=== PATIENT | female | born 1980 | race Caucasian/White ===

== ENCOUNTER 2017-08-06 21:42 | Emergency (ER) | payer MEDICAID, SELFPAY ==
[2017-08-06 21:52] VITALS: BP 116/77; PULSE 77; RESP 16; TEMP 36.8; O2SAT 100; BMI 21.1
--- NOTE | 2017-08-06 22:12 | HMH.EDGENADL ---
ED Disposition Clinical Impression: UTI (urinary tract infection) Qualifiers: Urinary tract infection type: acute cystitis Hematuria presence: with hematuria Qualified Code(s): N30.01 - Acute cystitis with hematuria Disposition: Home, Self-Care Condition on Discharge: Good Instructions: DI for Urinary Tract Infection (UTI) Additional Instructions: fluids and see pcp for follow up anc c/s Prescriptions: cephALEXin [Keflex 500mg Cap] 500 mg PO TID #30 cap Referrals: Suhas Bagley MD [Primary Care Provider] - - Critical Care Critical Care Time: No Attestation: On 08/06/17, the high probability of a clinically significant, sudden or life threatening deterioration of the following system(s) required my full and direct attention, intervention and personal management. The time I documented below is in addition to time spent performing reported procedures but includes the following listed in this critical care notation. Medical Decision Making - Medical Records Medical records reviewed: Yes: I reviewed the patient's medical records. Vital Signs: 08/06/17 21:52 Temperature 98.3 F Temperature Source Oral Pulse Rate [Brachial] 77 Respiratory Rate 16 Blood Pressure [Right Arm] 116/77 Blood Pressure Mean [Right Arm] 90 Blood Pressure Source [Right Arm] Automatic Cuff Blood Pressure Position [Right Arm] Sitting 02 Sat by Pulse Oximetry 100 Oxygen Delivery Method Room Air - Lab Data Lab results reviewed: Yes: I reviewed the patient's lab results. Lab Results 08/06/17 21:50: Urine Color Yellow, Urine Appearance Cloudy, Urine pH 7.5, Ur Specific [place] 1.025, Urine Protein 2+, Urine Glucose (UA) Negative, Urine Ketones Negative, Urine Blood 2+, Urine Nitrate Positive, Urine Bilirubin Negative, Urine Urobilinogen 1.0, Ur Leukocyte Esterase Trace, Urine RBC 3-5, Urine WBC 50-100 Orders (Tests/Meds): ORDERS Category Date Time Status Urine Culture Stat Micro 08/06/17 21:50 Received - Tee Inquiry Pt receiving controlled substance: No General Adult HPI - General Chief complaint: PAIN Stated complaint: Possible UTI Time Seen by Provider: 08/06/17 22:12 Mode of Arrival: Ambulatory Source of Information: Patient, Significant Other, Medical Record Limitations: No Limitations Description of Symptoms (Recalled from ER Triage Doc. by RN): HEMATURIA AND PAIN WITH URINATION - History of Present Illness HPI narrative: 2 day hx of freq and dysuria with no vomiting and sl hematuria Onset (ago): day(s) Location: pelvis Radiation: non-radiation Severity: moderate Quality: burning Consistency: intermittent Associated symptoms: negative: fever/chills, nausea/vomiting Treatments prior to arrival: none - Related Data Previous Rx's Medication Instructions Recorded cephALEXin [Keflex 500mg Cap] 500 mg PO TID #30 cap 08/06/17 Allergies Allergy/AdvReac Type Severity Reaction Status Date / Time ciprofloxacin [From CIPRO] Allergy Unknown I-HIVES Verified 08/06/17 22:00 erythromycin base Allergy Unknown I-HIVES Verified 08/06/17 22:00 [ERYTHROMYCIN BASE] [facility] History I have reviewed the patient's past medical history: Yes - *Social History Alcohol Intake: never Substance Use Type: opiates - Psychiatric History Expresses thoughts of harming self/others: None Suicide Plan Description: No Plan ROS Obtained: Yes All systems reviewed & no additional complaints - Constitutional Constitutional: Denies fever(s) - Eyes Eyes: Denies change in vision - ENT Ears, Nose, Mouth, and Throat: Denies sore throat - Cardiovascular Cardiovascular: Denies chest pain at rest - Respiratory Respiratory: No chest congestion, No cough - Gastrointestinal Gastrointestingal: Reports: nausea. Denies: abdominal pain, vomiting - Genitourinary Male Genitourinary: Denies flank pain, Reports hematuria, Reports urinary frequency, Denies urinary incontinence Female Genitourinary: Denies abnorm
[2017-08-06 22:14] LABS: Microscopic, Urine URINE MICROSCOPIC (MICROSCOPIC)
--- NOTE | 2017-08-06 22:15 | ED_ITS ---
ED Disposition Clinical Impression: UTI (urinary tract infection) Qualifiers: Urinary tract infection type: acute cystitis Hematuria presence: with hematuria Qualified Code(s): N30.01 - Acute cystitis with hematuria Disposition: Home, Self-Care Condition on Discharge: Good Instructions: DI for Urinary Tract Infection (UTI) Additional Instructions: fluids and see pcp for follow up anc c/s Prescriptions: cephALEXin [Keflex 500mg Cap] 500 mg PO TID #30 cap Referrals: Suhas Bagley MD [Primary Care Provider] - - Critical Care Critical Care Time: No Attestation: On 08/06/17, the high probability of a clinically significant, sudden or life threatening deterioration of the following system(s) required my full and direct attention, intervention and personal management. The time I documented below is in addition to time spent performing reported procedures but includes the following listed in this critical care notation. Medical Decision Making - Medical Records Medical records reviewed: Yes: I reviewed the patient's medical records. Vital Signs: 08/06/17 21:52 Temperature 98.3 F Temperature Source Oral Pulse Rate [Brachial] 77 Respiratory Rate 16 Blood Pressure [Right Arm] 116/77 Blood Pressure Mean [Right Arm] 90 Blood Pressure Source [Right Arm] Automatic Cuff Blood Pressure Position [Right Arm] Sitting 02 Sat by Pulse Oximetry 100 Oxygen Delivery Method Room Air - Lab Data Lab results reviewed: Yes: I reviewed the patient's lab results. Lab Results 08/06/17 21:50: Urine Color Yellow, Urine Appearance Cloudy, Urine pH 7.5, Ur Specific [place] 1.025, Urine Protein 2+, Urine Glucose (UA) Negative, Urine Ketones Negative, Urine Blood 2+, Urine Nitrate Positive, Urine Bilirubin Negative, Urine Urobilinogen 1.0, Ur Leukocyte Esterase Trace, Urine RBC 3-5, Urine WBC 50-100 Orders (Tests/Meds): ORDERS Category Date Time Status Urine Culture Stat Micro 08/06/17 21:50 Received - Tee Inquiry Pt receiving controlled substance: No General Adult HPI - General Chief complaint: PAIN Stated complaint: Possible UTI Time Seen by Provider: 08/06/17 22:12 Mode of Arrival: Ambulatory Source of Information: Patient, Significant Other, Medical Record Limitations: No Limitations Description of Symptoms (Recalled from ER Triage Doc. by RN): HEMATURIA AND PAIN WITH URINATION - History of Present Illness HPI narrative: 2 day hx of freq and dysuria with no vomiting and sl hematuria Onset (ago): day(s) Location: pelvis Radiation: non-radiation Severity: moderate Quality: burning Consistency: intermittent Associated symptoms: negative: fever/chills, nausea/vomiting Treatments prior to arrival: none - Related Data Previous Rx's Medication Instructions Recorded cephALEXin [Keflex 500mg Cap] 500 mg PO TID #30 cap 08/06/17 Allergies Allergy/AdvReac Type Severity Reaction Status Date / Time ciprofloxacin [From CIPRO] Allergy Unknown I-HIVES Verified 08/06/17 22:00 erythromycin base Allergy Unknown I-HIVES Verified 08/06/17 22:00 [ERYTHROMYCIN BASE] [facility] History I have reviewed the patient's past medical history: Yes - *Social History Alcohol Intake: never Substance Use Type: opiates - Psychiatric History Expresses thoughts of
[2017-08-06 22:56] LABS: Appearance,Urine CLOUDY (Clear); Bilirubin,Urine Negative (Negative); Blood, Urine 2+ (Negative); Color,Urine YELLOW (Yellow); Glucose,Urine (UA) Negative (Negative); Ketones,Urine Negative (Negative); Leukocyte Esterase,Urine TRACE (Negative); Nitrate,Urine POSITIVE (Negative); PH,Urine 7.5 (5.0-8.5); Protein,Urine 2+ (Negative); Specific Gravity, Urine 1.025 (1.005-1.030)
[2017-08-06 23:02] LABS: WBC,Urine 50-100 #/hpf (0-3)
== END 2017-08-06 23:37 | disposition home or self-care (01) ==
PROVIDERS: Emergency Provider Emergency Medicine; Family Provider Nurse Practitioner Family; PCP Emergency Medicine
DX: N30.01 Acute cystitis with hematuria (principal)
CPT/HCPCS: 81001; 87086; 87088; 87186; 99282

== ENCOUNTER → 2019-02-23 10:25 | Outpatient (CLI) | payer MEDICAID, SELFPAY ==
[2019-02-23 11:21] LABS: Basophils % 0.6 % (0.1-2.0); Eosinophils # 0.1 K/mm3 (0.0-0.4); Eosinophils % 2.2 % (0.1-12.0); Hematocrit 33.7 % (37.0-47.0); Hemoglobin 10.1 g/dL (12.2-16.2); Lymphocytes # 1.6 K/mm3 (0.7-4.5); Lymphocytes % 34.2 % (10-50); Mean Corpuscular Volume 76.9 fl (81-99); Mean Platelet Volume 7.6 fl (7.4-10.4); Monocytes # 0.2 K/mm3 (0.1-1.0); Monocytes % 4.1 % (1.7-9.3); Neutrophils # 2.8 K/mm3 (1.8-7.8); Neutrophils % 58.9 % (37.0-80.0); Platelet Count 291 K/mm3 (142-424); Red Blood Count 4.38 M/mm3 (4.20-5.40); Red Cell Distribution Width 15.7 % (11.5-17.5); White Blood Count 4.7 K/mm3 (4.8-10.8)
[2019-02-23 16:02] LABS: Alanine Aminotransferase 28 U/L (12-78); Albumin Level 3.6 gm/dL (3.4-5.0); Albumin/Globulin Ratio 0.9 (1.1-1.8); Alkaline Phosphatase 81 U/L (46-116); Anion Gap 9.1 mEq/L (5-15); Aspartate Amino Transferase 17 U/L (15-37); Bilirubin,Total 0.2 mg/dL (0.2-1.0); Blood Urea Nitrogen 10 mg/dL (7-18); Calcium 8.8 mg/dL (8.5-10.1); Carbon Dioxide 31 mmol/L (21.0-32.0); Chloride 104 mmol/L (98-107); Chol/HDL Ratio 2.7 (1-3.5); Cholesterol 141 mg/dL (140-200); Estimated Glomerular Filt Rate 112 ml/min (>60); Free T4 (Free Thyroxine) 1.28 ng/dl (0.76-1.46); GFR (African American) 135 ML/MIN (>60); Globulin 4.1 gm/dl (1.3-3.2); Glucose 89 mg/dL (74-106); HDL Cholesterol 53 mg/dL (29-89); LDL Cholesterol 73 mg/dL (0-130); Potassium 4.1 mmoL/L (3.5-5.1); Sodium 140 mmol/L (136-145); Thyroid Stimulating Hormone 2.08 uIU/ml (0.358-3.740); Total Protein,Serum 7.7 gm/dL (6.4-8.2); Triglycerides 74 mg/dL (30-200); VLDL Cholesterol 15 mg/dL (0-40)
[2019-02-24 09:18] LABS: Hep B Core Ab, Total Negative (Negative); Hepatitis B Surface Antigen Negative (Negative)
[2019-02-24 18:48] LABS: HIV Screen 4th Generation wRfx Non Reactive (Non Reactive); Hep A Ab, Total Positive (Negative); Hepatitis B Surf Ab Quant 96.9 mIU/mL (Immunity>9.9); Hepatitis C Antibody >11.0 s/co ratio (0.0-0.9); Vitamin D 25 Hydroxy 12.6 ng/mL (30.0-100.0)
== END ==
PROVIDERS: Visit Provider Emergency Medicine
DX: R76.8 Other specified abnormal immunological findings in serum (principal); F32.9 Major depressive disorder, single episode, unspecified; Z20.5 Contact with and (suspected) exposure to viral hepatitis; Z13.21 Encounter for screening for nutritional disorder
CPT/HCPCS: 36415; 80053; 80061; 82652; 84439; 84443; 85025; 86703; 86704; 86706; 86708; 87340; 87380; 87522; G0432

== ENCOUNTER 2023-10-01 20:54 | Emergency (ER) | payer MEDICAID, SELFPAY ==
[2023-10-01 21:00] VITALS: BP 110/62; PULSE 68; RESP 17; TEMP 36.8; O2SAT 99; BMI 21.3
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
[2023-10-01 21:49] VITALS: BP 100/60; BP 132/78; PULSE 70; PULSE 82; RESP 17; RESP 18; TEMP 36.7; O2SAT 99
== END 2023-10-01 21:49 ==
PROVIDERS: Emergency Provider Emergency Medicine
DX: F10.929 Alcohol use, unspecified with intoxication, unspecified (principal)
CPT/HCPCS: 99282

== ENCOUNTER 2024-04-07 23:32 | Observation (INO) | payer MEDICAID, SELFPAY ==
[2024-04-07 23:33] VITALS: BP 99/69; PULSE 112; RESP 20; TEMP 37.1; O2SAT 99; BMI 23.0
--- NOTE | 2024-04-07 23:49 | ECG_ITS ---
APPROVED REPORT Exam: Resting ECG HR:91 bpm ECG Measurements Heart Rate 91 AXES MA 158 P 72 QRSd 88 QRS 37 QT 372 T 20 QTc 421 Conclusion SINUS RHYTHM NORMAL ECG UNCONFIRMED REPORT Electronically signed by : ALEX BEGUM, 04/09/2024 04:29:10
[2024-04-08] VITALS (22 sets, daily range): BP systolic 91–106; BP diastolic 49–68; PULSE 60–80; RESP 14–20; TEMP 36.6–37.1; O2SAT 96–99; BMI 23.5
[2024-04-08 00:25] LABS: Basophils % 0.4 % (0.1-2.0); Eosinophils % 0.2 % (0.1-12.0); Hematocrit 30.3 % (37.0-47.0); Hemoglobin 9.3 g/dL (12.2-16.2); Lymphocytes # 0.5 K/mm3 (0.7-4.5); Lymphocytes % 11.5 % (10-50); Mean Corpuscular HGB Conc 30.6 g/dL (31.8-35.4); Mean Corpuscular Hemoglobin 22.8 pg (27.0-31.2); Mean Corpuscular Volume 74.3 fl (81-99); Mean Platelet Volume 8.5 fl (7.4-10.4); Monocytes # 0.3 K/mm3 (0.1-1.0); Monocytes % 7.3 % (1.7-9.3); Neutrophils # 3.2 K/mm3 (1.8-7.8); Neutrophils % 80.6 % (37.0-80.0); Platelet Count 207 K/mm3 (142-424); Red Blood Count 4.08 M/mm3 (4.20-5.40); Red Cell Distribution Width 16.1 % (11.5-17.5)
--- NOTE | 2024-04-08 00:25 | CT_ITS ---
PROCEDURE INFORMATION: Exam: CTA Chest With Contrast Exam date and time: 04/08/2024 1:20 AM Age: 43 years old Clinical indication: Fever; Additional info: Ivdu HX endocard, L side cp, fevers TECHNIQUE: Imaging protocol: Computed tomographic angiography of the chest with contrast. Exam focused on the arteries. 3D rendering (Not supervised by radiologist): MIP and/or 3D reconstructed images were created by the technologist. Radiation optimization: All CT scans at this facility use at least one of these dose optimization techniques: automated exposure control; mA and/or kV adjustment per patient size (includes targeted exams where dose is matched to clinical indication); or iterative reconstruction. Contrast material: ISOVUE; Contrast volume: 70 ml; Contrast route: INTRAVENOUS (IV); COMPARISON: 1. ABDPELWO CT abdomen pelvis wo con 02/09/2018 5:25 AM 2. CR CXR2V XR chest 2V 02/09/2018 5:34 AM FINDINGS: Pulmonary arteries: No pulmonary embolism. Aorta: No aortic aneurysm. Four vessel aortic arch. Thyroid: The thyroid gland is normal. Lungs: No focal consolidation. Linear radiopacities within the lung bases likely represent atelectasis versus scarring. Multiple subpleural pulmonary nodules measuring up to 8 mm. Pleural spaces: No pneumothorax. No pleural effusion. Heart: No cardiomegaly. No pericardial effusion. Lymph nodes: No suspicious adenopathy by size criteria. Spleen: Spleen is mildly enlarged; unchanged. Bones/joints: No acute fracture. Remote fracture deformity of the left clavicle. Soft tissues: Unremarkable. IMPRESSION: 1. No pulmonary embolism. 2. Multiple pulmonary nodules, largest measuring 8 mm. As per Fleischner Society guidelines for follow-up and management of multiple pulmonary nodules between 6 and 8 mm:For patients at low risk (minimal or absent history of smoking and of other known risk factors), recommend follow-up chest CT at 3-6 months, then consider followup at 18 - 24 months.For patients at high risk (history of smoking or of other known risk factors), recommend initial follow-up chest CT at 3-6 months, then at 18-24 months. 3. Other findings as above.
--- NOTE | 2024-04-08 00:27 | ED_ITS ---
Discharge Plan Disposition Patient Disposition: Admitted Condition: Serious Clinical Impressions Clinical Impression: Sepsis, Abscess, Active intravenous drug use Discharge ED Provider: Cali Wing Adult HPI General Chief complaint: Fever Stated complaint: fever x2 days Time Seen by Provider: 04/07/24 23:47 Mode of Arrival: Ambulatory Source of Information: Patient Limitations: No Limitations Description of Symptoms (Recalled from ER Triage Doc. by RN): Pt to ED with c/o fever X2 days, feeling like she was talking out of her head, abcesses to right arm, right hand, and left leg. She also reports pain with inspiration. Pt reports hx of abcesses needing I&D, endocarditis, sepsis, and kidney infection. 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 Pt last reports using Fentnyl approx 2 hours ago. She reports the abcesses she has are from missing her veins when trying to inject fentnyl. 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 She also has left-sided chest pain worse with deep inspiration. Patient also reports having headaches recently. No numbness, tingling, weakness. Patient has history of abscesses needing incision/drainage, sepsis, kidney infection. Patient reports abscesses are from missing her veins while trying to inject. She states she has not had any antibiotics recently. She believes her last hospitalization for serious bacterial infection was 2016. Patient denies cough, congestion, sore throat, nausea, vomiting, abdominal pain, dysuria, hematuria. Related Data Previous Rx's ?Medication ?Instructions ?Recorded bupropion HCl 75 mg tablet 75 mg PO BID #60 tabs 02/23/19 clonazepam 0.5 mg tablet 0.5 mg PO BID #60 tabs 02/23/19 cholecalciferol (vitamin D3) 25 1,000 unit PO DAILY #90 caps 03/02/19 mcg (1,000 unit) capsule ergocalciferol (vitamin D2) 1,250 50,000 unit PO QWEEK 90 days #12 03/02/19 mcg (50,000 unit) capsule caps Allergies Allergy/AdvReac Type Severity Reaction Status Date / Time ciprofloxacin [From CIPRO] Allergy Unknown I-HIVES Verified 02/23/19 09:43 erythromycin base Allergy Unknown I-HIVES Verified 02/23/19 09:43 [ERYTHROMYCIN BASE] [facility] Disclaimer: The information contained in this section may have been updated after the patient was seen, as this information can be updated by other users. Medical History (Updated 04/08/24 @ 04:40 by Bladimir Kramer RN) Sepsis Abscess Endocarditis Social History Smoking Status: Never smoker alcohol intake: former substance use type: heroin and IV drugs current occupational status: unemployed Travel in the last 8 weeks: None household members: family housing: apartment ROS Obtained: Yes All systems reviewed & no additional complaints except as documented Positive ROS per HPI Physical Exam General General appearance: alert and in no apparent distress Comment: Chronically ill-appearing Head Head exam: atraumatic and normocephalic Eye Eye exam: Present PERRL and EOMI (Pupils are small but not pinpoint, reactive, equal) ENT ENT exam: Present normal oropharynx and mucous membranes moist Neck Neck exam: Present normal inspection and full ROM; Absent tenderness Chest Chest inspection: Present symmetric chest wall rise; Absent tenderness Respiratory Respiratory exam: Present normal lung sounds bilaterally; Absent respiratory distress, wheezes or stridor Cardiovascular Cardiovascular exam: Present normal rhythm, tachycardia and other (2+ pulses in all 4 extremity) Abdominal Exam Abdominal exam: Present soft; Absent distention, tenderness, guarding or rebound Extremities Exam Extremities exam: Present full ROM and other (Patient has innumerable injection sites on her upper and lower extremities with scabs, few of them have mild surrounding erythema, 1 on her distal left lower extremity has obvious fluctuance with associated induration, posterior right hand also has induration); Absent edema (No peripheral edema) or joint swelling Neurological Exam Neurological exam: Present alert, oriented X3 and normal gait; Absent CN II-XII intact or motor sensory deficit Psychiatric Psychiatric exam: Present normal affect and normal mood Skin Skin exam: Present warm, dry and other (See extremities comments) Medical Decision Making Medical Records Medical records reviewed: Yes I reviewed the patient's medical records. MR Comment: patient had a primary care visit with Dr. Bagley in February 2019 for depression, started on bupropion and clonazepam at that time. Patient also has previous ER evaluations for UTI, abdominal pain, alcohol intoxication. Tee Inquiry Pt receiving controlled substance: No Vital Signs: 04/07/24 23:33 04/08/24 00:29 04/08/24 00:30 Temperature 98.7 F Temperature Source Oral Pulse Rate Pulse Rate [Right Radial] 112 H Respiratory Rate 20 Blood Pressure 99/49 L 95/53 L Blood Pressure [Right Arm] 99/69 L Blood Pressure Mean 65 70 Blood Pressure Mean [Right Arm] 79 Blood Pressure Source Blood Pressure Source [Right Arm] Automatic Cuff Blood Pressure Position Blood Pressure Position [Right Arm] Sitting 02 Sat by Pulse Oximetry 99 Oxygen Delivery Method Room Air 04/08/24 01:00 04/08/24 01:42 04/08/24 01:46 Temperature Temperature Source Pulse Rate 73 65 66 Pulse Rate [Right Radial] Respiratory Rate 15 14 14 Blood Pressure 104/58 L 93/56 L 100/59 L Blood Pressure [Right Arm] Blood Pressure Mean Blood Pressure Mean [Right Arm] Blood Pressure Source Blood Pressure Source [Right Arm] Blood Pressure Position Blood Pressure Position [Right Arm] 02 Sat by Pulse Oximetry 99 99 98 Oxygen Delivery Method 04/08/24 02:00 04/08/24 02:30 04/08/24 03:00 Temperature Temperature Source Pulse Rate 65 72 66 Pulse Rate [Right Radial] Respiratory Rate 14 15 14 Blood Pressure 96/53 L 95/56 L Blood Pressure [Right Arm] Blood Pressure Mean Blood Pressure Mean [Right Arm] Blood Pressure Source Blood Pressure Source [Right Arm] Blood Pressure Position Blood Pressure Position [Right Arm] 02 Sat by Pulse Oximetry 99 99 97 Oxygen Delivery Method 04/08/24 03:00 04/08/24 03:03 04/08/24 03:03 Temperature Temperature Source Pulse Rate 73 Pulse Rate [Right Radial] Respiratory Rate 15 Blood Pressure 91/56 L 96/57 L Blood Pressure [Right Arm] Blood Pressure Mean 62 65 Blood Pressure Mean [Right Arm] Blood Pressure Source Blood Pressure Source [Right Arm] Blood Pressure Position Blood Pressure Position [Right Arm] 02 Sat by Pulse Oximetry 97 Oxygen Delivery Method 04/08/24 03:15 04/08/24 03:30 04/08/24 03:30 Temperature Temperature Source Pulse Rate 67 73 Pulse Rate [Right Radial] Respiratory Rate 14 14 Blood Pressure 94/57 L Blood Pressure [Right Arm] Blood Pressure Mean 68 Blood Pressure Mean [Right Arm] Blood Pressure Source Blood Pressure Source [Right Arm] Blood Pressure Position Blood Pressure Position [Right Arm] 02 Sat by Pulse Oximetry 97 97 Oxygen Delivery Method 04/08/24 03:45 04/08/24 03:52 04/08/24 04:00 Temperature Temperature Source Pulse Rate 80 71 Pulse Rate [Right Radial] Respiratory Rate 17 15 Blood Pressure 101/60 L Blood Pressure [Right Arm] Blood Pressure Mean 69 Blood Pressure Mean [Right Arm] Blood Pressure Source Blood Pressure Source [Right Arm] Blood Pressure Position Blood Pressure Position [Right Arm] 02 Sat by Pulse Oximetry 97 97 Oxygen Delivery Method 04/08/24 04:02 04/08/24 04:18 Temperature 98.1 F Temperature Source Oral Pulse Rate 71 68 Pulse Rate [Right Radial] Respiratory Rate 16 Blood Pressure 101/60 L Blood Pressure [Right Arm] Blood Pressure Mean Blood Pressure Mean [Right Arm] Blood Pressure Source Automatic Cuff Blood Pressure Source [Right Arm] Blood Pressure Position Sitting Blood Pressure Position [Right Arm] 02 Sat by Pulse Oximetry 98 Oxygen Delivery Method Room Air Lab Data Lab Results 04/08/24 00:15: WBC 4.0 L, RBC 4.08 L, Hgb 9.3 L, Hct 30.3 L, MCV 74.3 L, MCH 22.8 L, MCHC 30.6 L, RDW 16.1, Plt Count 207, MPV 8.5, Neut % (Auto) 80.6 H, Lymph % (Auto) 11.5, Ellis % (Auto) 7.3, Eos % (Auto) 0.2, Baso % (Auto) 0.4, Neut # (Auto) 3.2, Lymph # (Auto) 0.5 L, Ellis # (Auto) 0.3, Eos # (Auto) 0.0, Baso # (Auto) 0.0, PT 11.7, INR 1.05, APTT 28.6, Sodium 135 L, Potassium 3.8, Chloride 103, Carbon Dioxide 27, Anion Gap 8.8, BUN 11, Creatinine 0.80, Estimated Creat Clear 95, Estimated GFR 78, Est GFR ( Amer) 95, Glucose 104 H, Lactate 1.8, Calcium 8.9, Total Bilirubin 0.6, AST 28, ALT 24, Alkaline Phosphatase 67, Troponin I < 0.01, Total Protein 7.5, Albumin 4.0, Globulin 3.5 H, Albumin/Globulin Ratio 1.1, Serum HCG, Qual Negative 04/08/24 00:45: SARS-CoV-2 (PCR) Not detected, Influenza A Untype (PCR) Not detected, Influenza Type B (PCR) Not detected 04/08/24 00:15 04/08/24 00:15 Orders (Tests/Meds): ED MEDICATIONS Generic Name Dose Route Start Last Admin Trade Name Freq PRN Reason Stop Dose Admin Acetaminophen 650 mg 04/08/24 04:12 Acetaminophen 325mg Tab PO 05/08/24 04:11 Q4HP PRN Fever or Mild Pain (1-3) Docusate Sodium 100 mg 04/08/24 09:00 Docusate Sodium 100 Mg Capsule PO 05/08/24 08:59 DAILY JANET Enoxaparin Sodium 40 mg 04/08/24 09:00 Enoxaparin 40mg/0.4ml Syringe SQ 05/08/24 08:59 DAILY JANET Ibuprofen 400 mg 04/08/24 04:12 Ibuprofen 400 Mg Tablet PO 05/08/24 04:11 Q6HP PRN Mild Pain (1-3) Methadone HCl 85 mg 04/08/24 07:00 Methadone 10mg Tablet PO 05/08/24 06:59 DAILYDM JANET Miscellaneous 1 each 04/08/24 00:20 04/08/24 00:41 Vancomycin Consult Request NOTAPPLIC 04/08/24 00:21 1 each CONSULT PHARMACY ONE Administration Multivitamins 1 each 04/08/24 17:00 Multivitamin Tablet PO 05/08/24 16:59 1700 JANET Ondansetron HCl 4 mg 04/08/24 04:12 Ondansetron 4mg/2ml Vial IV 05/08/24 04:11 Q8HP PRN Nausea Sodium Chloride 10 ml 04/08/24 00:00 Sodium Chloride 0.9% 10ml Flush Syringe IV 05/08/24 00:00 NEEDED PRN Maintain IV Site Sodium Chloride 10 ml 04/08/24 01:25 04/08/24 01:27 Sodium Chloride 0.9% 10ml Syr (Rad Only) IV 05/08/24 01:24 10 ml NEEDED PRN Administration Maintain IV Site Sodium Chloride 10 ml 04/08/24 04:12 Sodium Chloride 0.9% 10ml Flush Syringe IV 05/08/24 04:11 NEEDED PRN Maintain IV Site Discontinued Medications Generic Name Dose Route Start Last Admin Trade Name Freq PRN Reason Stop Dose Admin Bacitracin 1 each 04/08/24 01:53 04/08/24 01:59 Bacitracin Oint 0.9gm Udp TP 04/08/24 01:54 1 each ONCE ONE Administration Lactated Ringer's 1,000 mls @ 999 mls/hr 04/08/24 00:00 04/08/24 00:22 Lactated Ringer's 1000 Ml Bag IV 04/08/24 01:00 Not Given .Q1H1M ONE Piperacillin Sod/Tazobactam 100 mls @ 200 mls/hr 04/08/24 00:30 04/08/24 00:32 Sod 4.5 gm/ Sodium Chloride IV 04/08/24 00:59 200 mls/hr ONCE ONE Administration Lactated Ringer's 1,850 mls @ 925 mls/hr 04/08/24 00:22 04/08/24 00:28 Lactated Ringer's 1000 Ml Bag 30 ml/kg infuse over 2 hr (1850 ml) 04/08/24 02:21 925 mls/hr IV Administration .Q2H ONE Vancomycin HCl 1,000 mg/ 250 mls @ 125 mls/hr 04/08/24 00:30 04/08/24 01:39 Sodium Chloride IV 04/08/24 02:29 125 mls/hr ONCE ONE Administration Iopamidol 150 ml 04/08/24 01:25 04/08/24 01:26 Iopamidol-370 (76%);100ml Bottle IV 04/08/24 01:26 150 ml ONCE ONE Administration Sodium Chloride 100 ml 04/08/24 01:25 04/08/24 01:26 0.9 % Sodium Chloride 50 Ml Vial IV 04/08/24 01:26 100 ml ONCE ONE Administration ORDERS Category Date Time Status CT angio chest PE protocol Stat Cat Scan 04/08/24 00:[address] head/brain wo/w con Stat Cat Scan 04/08/24 00:53 Completed Consult Assistant Customer Service Manager [CONS] Routine Cons 04/07/24 23:49 Active POCUS Point of Care (ER Only) Stat Exams 04/08/24 00:00 Completed Activated Partial Thrombo Time Stat Lab 04/08/24 00:15 Completed Complete Blood Count Auto Diff Stat Lab 04/08/24 00:15 Completed Comprehensive Metabolic Panel Stat Lab 04/08/24 00:15 Completed HCG Qualitative, Serum Stat Lab 04/08/24 00:15 Completed Lactic Acid Stat Lab 04/08/24 00:15 Completed Prothrombin Time INR Stat Lab 04/08/24 00:15 Completed Rapid PCR Covid and Flu A/B Stat Lab 04/08/24 00:45 Completed Troponin I Q3H Lab 04/08/24 03:30 Ordered Troponin I Q3H Lab 04/08/24 06:30 Ordered Troponin I Stat Lab 04/08/24 00:15 Completed Blood Culture Stat Micro 04/08/24 00:15 Received Wound Culture and Gram Stain Stat Micro 04/08/24 01:45 Results Medical Decision Narrative: In summary, this 43-year-old female with comorbidities of active IV drug use, previous endocarditis which increased risk of bacteremia, endocarditis, other infection presents to the emergency department today with concerns of subjective fever, generalized malaise, multiple areas concerning for skin abscess, chest pain, headaches. On initial evaluation patient is tachycardic, borderline hypotensive, afebrile, lungs clear to auscultation bilaterally, no peripheral edema, patient has multiple lesions on the extremities as described in physical exam, no neurodeficits. Differential diagnosis includes but is not limited to bacteremia, endocarditis, ACS, PE, septic emboli, pulmonary infarct, electrolyte abnormality, dehydration, kidney dysfunction, viral syndrome, brain abscess. Based on these concerns, I ordered broad workup including labs, CT imaging, cardiac workup. ECG personally interpreted demonstrate normal sinus rhythm, rate 91, normal axis, normal SD and QTc, no STEMI Patient received sepsis bolus, broad-spectrum antibiotics for treatment. Labs personally reviewed demonstrate leukopenia with WBC 4.0, anemia with hemoglobin 9.3, platelets normal at 207, normal coag studies, trace hyponatremia nonactionable, no findings of kidney dysfunction, initial troponin undetectably low at less than 0.01, no transaminitis. COVID, flu negative [id number] bedside ultrasound was performed. See procedure note for details. No obvious vegetations on the heart, abscess identified on the left lower extremity. CT imaging personally interpreted demonstrate no acute intracranial abnormality, no mass, no midline shift, no obvious abscess, see etiology intracranial interpretation. CTA PE was also personally interpreted and I do not appreciate PE however there are multiple pulmonary nodules, no lung abscess appreciated. I performed I&D on distal left lower extremity. Purulent, hyatt-colored material was expressed from the wound. Patient states the material that she injects is hyatt. Bacitracin and dressing were applied to the wound. Patient requires admission for continued management of sepsis, concerns for likely bacteremia, known skin abscess, as well as pulmonary abnormalities. I discussed this case with the hospitalist including lab findings, patient's lifestyle, and findings on workup. He accepted the patient for admission. Procedures Abscess I/D Site: lower extremity Side (if applicable): left Sedation/analgesia: none Local Anesthetic: lidocaine 1% and with epi Amount of anesthesia used (mL): 1 Technique: incised with #11 blade Amount of fluid expressed (mL): 1 Irrigation: Yes (20mL saline with syringe) Packing used?: none Complications: other (No complications, material expressed from the abscess was purulent but hyatt-colored. No loculations. Bacitracin applied, wound dressing applied) Limited Ultrasound Interpretation:: Limited Cardiac Ultrasound Indication: Chest pain, tachycardia Identified cardiac views: [-Cardiac parasternal long axis] [-Cardiac parasternal short axis] [-Cardiac apical four-chamber] [-Cardiac subxiphoid] Findings: Cardiac activity present, no gross wall motion abnormality, no pericardial effusion, no right heart strain, no obvious vegetation appreciated Impression: -Cardiac activity present, no gross wall motion abnormality, no pericardial effusion, no right heart strain, no obvious vegetation appreciated Images were saved to permanent archive The study was technically adequate CPT: 28020 This study was performed by oh, and I personally interpreted all images/videos. Based on my clinical judgement, these images were adequate and did necessitate further imaging. Miscellaneous Procedure Procedure Performed: Ultrasound-guided IV Indication: Need for peripheral IV access Procedure details: Skin was cleaned with chlorhexidine, probe was cleaned, sterile lube used for ultrasound, proximal right upper extremity 18-gauge IV placed successfully on first attempt, draws and flushes. Patient tolerated procedure well, neurovascularly intact after procedure Soft tissue ultrasound Indication: Soft tissue redness, pain, swelling Identified structures: Left lower extremity soft tissue Location: Distal left lower extremity medial aspect Findings: Abscess approximately 1 to 1.5 cm without significant surrounding cellulitis Impression: Abscess Images were saved to the permanent archive. The study was technically adequate. Soft tissue CPT codes Lower extremity: 18886-30 This study was performed by me, and I personally interpreted all images/videos. Based on my clinical judgment, these images were adequate and did not necessitate further imaging. Critical Care Critical Care Time Critical Care Time: Yes Attestation: On 04/07/24, the high probability of a clinically significant, sudden or life threatening deterioration of the following system(s) (cardiac) required my full and direct attention, intervention and personal management. The time I documented below is in addition to time spent performing reported procedures but includes the following listed in this critical care notation. Total Time Total Critical Care Time: 40
[2024-04-08] MEDS: LACTATED RINGERS 1000ML 1,850 ML 925 ML IV (00:28)
[2024-04-08 00:30] LABS: Chloride 103 mmol/L (98-107); Potassium 3.8 mmoL/L (3.5-5.1); Sodium 135 mmol/L (136-145)
[2024-04-08 00:32] LABS: Blood Urea Nitrogen 11 mg/dl (7-17); Creatinine Clearance Estimated 95 mL/min (50-200); Estimated Glomerular Filt Rate 78 ml/min (>60); GFR (African American) 95 ML/MIN (>60); Lactic Acid 1.8 mmol/L (0.7-2.1)
[2024-04-08] MEDS: PIPERACILLIN/TAZO 4.5 GM in 0.9 % SODIUM CHLORIDE 100 ML IV (00:32)
[2024-04-08 00:33] LABS: Alanine Aminotransferase 24 U/L (12-78); Albumin/Globulin Ratio 1.1 (1.1-1.8); Alkaline Phosphatase 67 U/L (38-126); Anion Gap 8.8 mEq/L (5-15); Aspartate Amino Transferase 28 U/L (14-36); Bilirubin,Total 0.6 mg/dl (0.2-1.3); Calcium 8.9 mg/dl (8.4-10.2); Carbon Dioxide 27 mmol/L (22.0-30.0); Globulin 3.5 g/dL (1.3-3.2); Glucose 104 mg/dl (74-100); Total Protein,Serum 7.5 g/dl (6.3-8.2)
[2024-04-08 00:36] LABS: Activated Partial Thrombo Time 28.6 seconds (22.8-30.6); INR 1.05 (0.9-1.1); Prothrombin Time 11.7 seconds (10.1-12.5)
[2024-04-08 00:37] LABS: HCG Qualitative, Serum Negative (Negative)
[2024-04-08] MEDS: VANCOMYCIN CONSULT REQUEST 1 EACH NOTAPPLIC (00:41)
[2024-04-08 00:49] LABS: Coronavirus 19, PCR Not Detected (NotDetected); Influenza A, PCR Not Detected (NotDetected); Influenza B, PCR Not Detected (NotDetected)
[2024-04-08 00:50] LABS: Troponin I < 0.01 ng/ml (0.00-0.034)
--- NOTE | 2024-04-08 00:53 | CT_ITS ---
PROCEDURE INFORMATION: Exam: CT Head Without And With Contrast Exam date and time: 04/08/2024 1:15 AM Age: 43 years old Clinical indication: Pain; Headache; Additional info: Ivdu HX endocard, PAZ, no neuro deficit TECHNIQUE: Imaging protocol: Computed tomography of the head without and with contrast. Radiation optimization: All CT scans at this facility use at least one of these dose optimization techniques: automated exposure control; mA and/or kV adjustment per patient size (includes targeted exams where dose is matched to clinical indication); or iterative reconstruction. Contrast material: ISOVUE; Contrast volume: 80 ml; Contrast route: IV; COMPARISON: No relevant prior studies available. FINDINGS: Brain: Normal appearing brain parenchyma without intraparenchymal hemorrhage and normal hyatt-white matter differentiation/no obvious acute ischemic stroke. No intra-or extra-axial fluid collection, no supra-or infratentorial mass, no mass effect or midline shift. No abnormal intracranial enhancement. Cerebral ventricles: Ventricles, sulci and basal cisterns are normal in size without hydrocephalus. Paranasal sinuses: No significant mucoperiosteal thickening in the visualized paranasal sinuses. Mastoid air cells: No mastoid effusion. Bones: Visualized skull bones are grossly normal. Soft tissues: Calcific/noncalcific sebaceous cyst(s) in the soft tissues of the scalp. IMPRESSION: No evidence of an acute intracranial hemorrhage, mass lesion or obvious acute ischemic infarction.
[2024-04-08] MEDS: 0.9 % SODIUM CHLORIDE 50 ML VIAL 100 ML IV (01:26)
[2024-04-08] MEDS: IOPAMIDOL-370 (76%);100ML BOTTLE 150 ML IV (01:26)
[2024-04-08] MEDS: SODIUM CHLORIDE 0.9% 10ML SYR (RAD ONLY) 10 ML IV (01:27)
[2024-04-08] MEDS: VANCOMYCIN HCL 1,000 MG in 0.9 % SODIUM CHLORIDE 250 ML 125 MG IV (01:39)
--- NOTE | 2024-04-08 01:43 | PC.NURSE ---
at bedside for I&D at this time
[2024-04-08] MEDS: BACITRACIN OINT 0.9GM UDP 1 EACH TP (01:59)
--- NOTE | 2024-04-08 02:05 | PC.NURSE ---
wound to LLE dressed with bacitracin, non-adherent pad, gauze, and tega-derm. pt given warm blanket. vanc started per SEP. sepsisw bolus infusing. call light in reach. pt voices no other needs at this time.
--- NOTE | 2024-04-08 03:32 | PC.NURSE ---
called radiology at this time to inquire about CT reads.
--- NOTE | 2024-04-08 03:54 | PC.NURSE ---
Pt to bathroom at this time
--- NOTE | 2024-04-08 04:01 | PC.NURSE ---
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 vss. dx: sepsis.
--- NOTE | 2024-04-08 04:33 | PC.NURSE ---
Patient arrived to floor via wheelchair from ED at 04:25.
--- NOTE | 2024-04-08 05:14 | P.HP_ITS ---
History of Present Illness *Admission Date: 04/08/24 *Reason for visit:: Fever for 2 days and pain on respiration *History of present illness: The patient comes in due to having a fever not feeling well also having pain when she is breathing in. Also had an abscess on her left leg that was I&D in the emergency room, this was an injection site from IV drugs and purulent material was returned, patient has multiple track loco on both lower extremities and both forearm, noted with a low white count of 4, a history of hepatitis C, and being in a meth clinic but was unable to get her dose of 85 mg a day due to transportation issues on Tuesday so used IV drugs until her arrival to the emergency room. Patient was started on Zosyn and vancomycin in the emergency room. Scans showed multiple pulmonary nodules with the potential for endocarditis one of the reasons for admission. Patient has terrible veins lab having problems getting blood her first troponin was negative I have canceled the second 1 since nobody has been able to draw blood. She does have 1 IV in her right upper arm. Also starting the patient back on her normal dose of methadone 85 mg.. It is hard to evaluate how much fentanyl she has been taking and for how long. In order to decrease the risk of withdrawal symptoms [facility] Disclaimer: The information contained in this section may have been updated after the patient was seen, as this information can be updated by other users. Medical History IV drug user Sepsis Abscess Endocarditis Social History Smoking Status: Never smoker alcohol intake: former substance use type: heroin and IV drugs current occupational status: unemployed Travel in the last 8 weeks: None household members: family housing: apartment Review of Systems Review of Systems Review of systems:: pertinent systems reviewed and negative unless documented below Constitutional Constitutional: Reports system reviewed and no additional complaints, except as documented Comments: Patient states she feels fairly good and does not expect to have any withdrawal symptoms until tomorrow morning. Eyes Eyes: Reports system reviewed and no additional complaints, except as documented ENT Ears, Nose, Mouth, and Throat: Reports system reviewed and no additional complaints, except as documented *Cardiovascular Cardiovascular: Reports system reviewed and no additional complaints, except as documented and Reports dyspnea on exertion *Respiratory Respiratory: Reports as per HPI and Reports dyspnea on exertion *Gastrointestinal Gastrointestinal: Reports system reviewed and no additional complaints, except as documented *Genitourinary Genitourinary: Reports system reviewed and no additional complaints, except as documented *Musculoskeletal Musculoskeletal: Reports system reviewed and no additional complaints, except as documented Integumentary/Breasts Skin/Breast: Reports system reviewed and no additional complaints, except as documented and Reports wounds Comments: Denies pain , patient has multiple track loco noted also had I&D by the ER physician of left leg. *Neurologic Neurologic: Reports system reviewed and no additional complaints, except as documented Psychiatric Psychiatric: Reports system reviewed and no additional complaints, except as documented Endocrine Endocrine: Reports system reviewed and no additional complaints, except as documented Hematologic/Lymphatic Hematologic/Lymphatic: Reports system reviewed and no additional complaints, except as documented Allergic/Immunologic Allergic/Immunologic: Reports system reviewed and no additional complaints, except as documented Meds Home Medications and Allergies Home Medications ?Medication ?Instructions ?Recorded ?Confirmed ?Type methadone 10 mg/5 mL oral solution 85 mg PO DAILY 04/08/24 04/08/24 History New Prescriptions to Start Prescriptions: Allergies Allergy/AdvReac Type Severity Reaction Status Date / Time ciprofloxacin [From CIPRO] Allergy Unknown I-HIVES Verified 02/23/19 09:43 erythromycin base Allergy Unknown I-HIVES Verified 02/23/19 09:43 [ERYTHROMYCIN BASE] Exam Data for Last 24 hours Vital signs and Labs for Last 24 Hours: Temp Pulse Resp BP Pulse Ox O2 Del Method 97.8 F 60 16 101/60 L 98 Room Air 04/08/24 04:55 04/08/24 04:55 04/08/24 04:55 04/08/24 04:55 04/08/24 04:55 04/08/24 04:55 Laboratory Results - last 24 hr 04/08/24 00:15: WBC 4.0 L, RBC 4.08 L, Hgb 9.3 L, Hct 30.3 L, MCV 74.3 L, MCH 22.8 L, MCHC 30.6 L, RDW 16.1, Plt Count 207, MPV 8.5, Neut % (Auto) 80.6 H, Lymph % (Auto) 11.5, [place] % (Auto) 7.3, Eos % (Auto) 0.2, Baso % (Auto) 0.4, Neut # (Auto) 3.2, Lymph # (Auto) 0.5 L, [place] # (Auto) 0.3, Eos # (Auto) 0.0, Baso # (Auto) 0.0, PT 11.7, INR 1.05, APTT 28.6, Sodium 135 L, Potassium 3.8, Chloride 103, Carbon Dioxide 27, Anion Gap 8.8, BUN 11, Creatinine 0.80, Estimated Creat Clear 95, Estimated GFR 78, Est GFR ( Amer) 95, Glucose 104 H, Lactate 1.8, Calcium 8.9, Total Bilirubin 0.6, AST 28, ALT 24, Alkaline Phosphatase 67, Troponin I < 0.01, Total Protein 7.5, Albumin 4.0, Globulin 3.5 H, Albumin/Globulin Ratio 1.1, Serum HCG, Qual Negative 04/08/24 00:45: SARS-CoV-2 (PCR) Not detected, Influenza A Untype (PCR) Not detected, Influenza Type B (PCR) Not detected I & O for Last 24 hours: Intake & Output 04/05/24 04/06/24 04/07/24 04/08/24 23:59 23:59 23:59 23:59 Intake Total 2500 / 2500 Balance 2500 / 2500 Weight 66.678 kg 67.903 kg Microbiology Reports for the Last 24 Hours: Microbiology 04/08/24 01:45 Leg,Left Gram Stain - Final Radiology Reports for the Last 24 Hours: No acute findings found on CT scan of chest or abdomen Constitutional Constitutional: mild distress, thin and chronically ill appearing Comments: Patient looks 15 years older than stated age *Routine HEENT Exam Head: Present normocephalic and atraumatic Eye: Present EOMI and PERRL ENT: Present mucous membranes moist *Routine Neck Exam Neck: Present supple and full ROM Comments: No signs of neck discomfort found no signs of meningitis signs Routine Chest/Breast/Axilla Exam Comments: Patient denied and no chest pain chest wall pain was found on exam, *Routine Respiratory Exam Respiratory: Present CTA bilaterally, normal respiratory effort and able to speak in complete sentences Comments: Lungs were clear bilaterally. *Routine Cardiovascular Exam Cardiovascular: Present RRR, Normal S1 and Normal S2 *Routine Abdominal Exam Abdominal: Present soft and normoactive bowel sounds Comments: No pain was found upon the abdominal exam *Routine Rectal Exam Rectal:: deferred *Routine Genitalia Exam Genitalia:: deferred *Routine Extremities Exam Extremities: Present normal capillary refill Comments: Examining the arms and legs multiple track loco noted., Nailbeds are pink and still have brisk capillary refill no edema was noted, dressing over mid lower left lower leg extremity from I&D Routine Back/Spine/Pelvis Exam Back/Spine: Present full ROM and CVA tenderness Comments: Patient is able to get up and walk without assistance to the bathroom without any difficulty *Routine Skin Exam Skin: Present wounds Comments: I&D done on left lower extremity by ER physician and is dressed wrist of skin and arms show multiple track loco *Routine Neurological Exam Neurological: Present alert, oriented X3, CN II-XII intact, normal reflexes, vision grossly intact, hearing grossly intact and normal speech Comments: Patient was very pleasant and cooperative, no signs of withdrawals or confusion Routine Psychiatric Exam Psychiatric: Present normal affect, normal thought process, cooperative, good insight and good judgment Additional Findings:: Noted patient was able to produce a methadone card from the clinic that she goes to H&P: Result Impressions 1. IV drug abuse, with abscess to left lower extremity, fever, pain upon respiration 2. In methadone clinic but is noncompliant and is not on methadone for last several days 3. Lower than expected a white count 4. Nodularity found upon CT scan of the lungs, with mild effusion noted in right lower lobe posterior on film Imaging and Cardiology Chest x-ray: Status: image reviewed by me Additional comments: Some with venous/infiltrate seen in the right lower lung posterior. This is a small area also noting nodularity that was documented by radiology Assessment and Plan *Assessment and plan (1) Active intravenous drug use: Status: Acute Category: Social Hx Code(s): F19.90 - Other psychoactive substance use, unspecified, uncomplicated (2) Abscess: Status: Acute Category: Medical Code(s): L02.91 - Cutaneous abscess, unspecified (3) Sepsis: Status: Acute Category: Medical Code(s): A41.9 - Sepsis, unspecified organism (4) Painful respiration: Status: Acute Category: Medical Code(s): R07.1 - Chest pain on breathing (5) Leukopenia: Status: Acute Category: Medical Code(s): D72.819 - Decreased white blood cell count, unspecified (6) Microcytic anemia: Status: Acute Category: Medical Code(s): D50.9 - Iron deficiency anemia, unspecified (7) Malnutrition: Status: Acute Category: Medical Code(s): E46 - Unspecified protein-calorie malnutrition Plan 43-year-old female who is an active IV drug user. Presented to the ER with concern for fevers and chills. Discussed case with ER physician, request admission for rule out of endocarditis. Medicine agreed to admit. Started on empiric antibiotics. Problems addressed as follows: 1. Treatment related to low white count, with I&D of lower leg and and IV drug use. Will start antibiotics IV. And admit to the floor., Do agree with the emergency room physician endocarditis needs to be ruled out.. Awaiting blood culture results, to be able to determine outpatient treatment. - White count low at 4, hemoglobin low at 9.3. Transfusion threshold hemoglobin less than 7. Kidney function normal with BUN 11, creatinine 0.8. 2. IV drug abuse and being in methadone, will restart the patient's methadone also work with case management to see if we can get her an appointment when she is discharged so she can continue her methadone and potentially not use IV fentanyl. 3. To continue to monitor for any significant signs of withdrawal, and also to be aware that visitors can bring her more drugs into the hospital. 4. Malnutrition, will start multivitamin get the patient on a regular diet as soon as possible Rounded on patient after nurse practitioner. Personally examined and interviewed patient. Agree with exam findings and care plan as documented. Awaiting blood cultures. Will necessitate at least 2 midnights of admission.
--- NOTE | 2024-04-08 05:21 | PC.NURSE ---
2nd trop was unable to be collected. Two people from lab tried to obtain iv access and was unsuccessful. Called provider and order was cancelled.
[2024-04-08] MEDS: PIPERACILLIN/TAZO 3.375 GM in 0.9 % SODIUM CHLORIDE 50 ML IV ×3 (06:20→23:23)
--- NOTE | 2024-04-08 06:57 | PC.WOUNDNOTE ---
abscess to right hand
--- NOTE | 2024-04-08 06:59 | PC.WOUNDNOTE ---
Abscess to right upper arm
--- NOTE | 2024-04-08 06:59 | PC.WOUNDNOTE ---
Addendum entered by Bladimir Kramer RN 04/08/24 07:00: Left lower leg Original Note:
[2024-04-08] MEDS: METHADONE 10MG TABLET 85 MG PO (07:29)
[2024-04-08] MEDS: DOCUSATE SODIUM 100 MG CAPSULE PO (08:59)
--- NOTE | 2024-04-08 09:05 | P.CONPHA_ITS ---
Pharmacy Consult Date: 04/08/24 Time: 09:05 Referring provider: DR. RIBEIRO Reason for Consult:: VANCOMYCIN DOSING Allergies Allergy/AdvReac Type Severity Reaction Status Date / Time ciprofloxacin [From CIPRO] Allergy Unknown I-HIVES Verified 02/23/19 09:43 erythromycin base Allergy Unknown I-HIVES Verified 02/23/19 09:43 [ERYTHROMYCIN BASE] Home Medications ?Medication ?Instructions ?Recorded ?Confirmed ?Type bupropion HCl 75 mg tablet 75 mg PO BID #60 tabs 02/23/19 04/08/24 Rx clonazepam 0.5 mg tablet 0.5 mg PO BID #60 tabs 02/23/19 04/08/24 Rx cholecalciferol (vitamin D3) 25 1,000 unit PO DAILY #90 caps 03/02/19 04/08/24 Rx mcg (1,000 unit) capsule ergocalciferol (vitamin D2) 1,250 50,000 unit PO QWEEK 90 days #12 03/02/19 04/08/24 Rx mcg (50,000 unit) capsule caps New Prescriptions to Start Prescriptions: Height: 1.7 m Weight: 67.903 kg Laboratory Results:: Laboratory Results - last 24 hr 04/08/24 00:15: WBC 4.0 L, RBC 4.08 L, Hgb 9.3 L, Hct 30.3 L, MCV 74.3 L, MCH 22.8 L, MCHC 30.6 L, RDW 16.1, Plt Count 207, MPV 8.5, Neut % (Auto) 80.6 H, Lymph % (Auto) 11.5, [place] % (Auto) 7.3, Eos % (Auto) 0.2, Baso % (Auto) 0.4, Neut # (Auto) 3.2, Lymph # (Auto) 0.5 L, [place] # (Auto) 0.3, Eos # (Auto) 0.0, Baso # (Auto) 0.0, PT 11.7, INR 1.05, APTT 28.6, Sodium 135 L, Potassium 3.8, Chloride 103, Carbon Dioxide 27, Anion Gap 8.8, BUN 11, Creatinine 0.80, Estimated Creat Clear 95, Estimated GFR 78, Est GFR ( Amer) 95, Glucose 104 H, Lactate 1.8, Calcium 8.9, Total Bilirubin 0.6, AST 28, ALT 24, Alkaline Phosphatase 67, Troponin I < 0.01, Total Protein 7.5, Albumin 4.0, Globulin 3.5 H, Albumin/Globulin Ratio 1.1, Serum HCG, Qual Negative 04/08/24 00:45: SARS-CoV-2 (PCR) Not detected, Influenza A Untype (PCR) Not detected, Influenza Type B (PCR) Not detected Medical History: Medical History (Updated 04/08/24 @ 05:33 by Arik Aiken APRN) IV drug user Sepsis Abscess Endocarditis Assessment and Plan Assessment and plan all Dx Assessment and Plan for all problems:: Pharmacokinetic dosing service Objective: Patient: Floor: Age: 43 yo Serum creatinine: 0.8 mg/dL Height: 66.9 Inches Weight (kg): 67.9 Assessment: IBW (kg): 61.37 Dosing wt(kg): 67.9 Estimated Creatinine clearance (ml/min): 87.8 CRCL method: Cockcroft and Gault using ibw(default). Drug selected: Vancomycin Loading dose (mg): 0 Vd (liters): 54.3 (factor used: 0.8 L/kg) Mati (hr-1): 0.077 Half life (hrs): 9.00 Recommended dose: 1250 mg Interval: 12 hrs Infusion time (hrs): 2.0 Predicted peak (mcg/mL): 35.4 Predicted trough (mcg/mL): 16.39 Total body weight is being used for vancomycin dosing. Recommendations: Give Vancomycin 1250 mg q 12 hrs with an expected Cpeak of 35.4 mcg/ml and an expected Ctrough of 16.39 mcg/ml ----Vanco only - ignore for aminoglycosides----- CLvanco= 4.18 L/hr AUC 0-24 /NISHANT Data: NISHANT 0.5 mcg/mL: AUC/NISHANT: 1196.2 NISHANT 1.0 mcg/mL: AUC/NISHANT: 598.1 --------- NISHANT 1.5 mcg/mL: AUC/NISHANT: 398.7 NISHANT 2.0 mcg/mL: AUC/NISHANT: 299.0
[2024-04-08] MEDS: VANCOMYCIN/WATER FOR INJ (PEG) 1.25 GM/250 ML PIGGYBACK IV ×2 (09:22→21:02)
[2024-04-08] MEDS: MULTIVITAMIN TABLET 1 EACH PO (16:04)
--- NOTE | 2024-04-08 17:47 | PC.NURSE ---
pt is currently resting in bed. VSS. on RA. lungs clear and bowel sounds active. abx administered. pt has not called out for anything this shift. no pain verbalized. no evidence of withdrawal. significant other has been at bedside most of the day. abscess noted on rt upper arm and hand. no change since this am. dressing c/d/i on rt lower leg post i&d. call light within reach. pt has no needs at this time.
[2024-04-09] VITALS: BP 102/60; PULSE 77; RESP 16; TEMP 37.5; O2SAT 97
--- NOTE | 2024-04-09 00:32 | EXP.PN ---
Subjective *Date: 04/09/24 *Time: 00:32 Interval history: Patient's right hand dorsum side is becoming slightly red but edematous painful and stiff to move, Exam Data for Last 24 hours Vital signs and Labs for Last 24 Hours: Temp Pulse Resp BP Pulse Ox O2 Del Method 99.5 F 77 16 102/60 L 97 Room Air 04/09/24 00:00 04/09/24 00:00 04/09/24 00:00 04/09/24 00:00 04/09/24 00:00 04/09/24 00:00 Laboratory Results - last 24 hr 04/08/24 00:15: PT 11.7, INR 1.05, APTT 28.6, Sodium 135 L, Potassium 3.8, Chloride 103, Carbon Dioxide 27, Anion Gap 8.8, BUN 11, Creatinine 0.80, Estimated Creat Clear 95, Estimated GFR 78, Est GFR ( Amer) 95, Glucose 104 H, Lactate 1.8, Calcium 8.9, Total Bilirubin 0.6, AST 28, ALT 24, Alkaline Phosphatase 67, Troponin I < 0.01, Total Protein 7.5, Albumin 4.0, Globulin 3.5 H, Albumin/Globulin Ratio 1.1, Serum HCG, Qual Negative 04/08/24 00:45: SARS-CoV-2 (PCR) Not detected, Influenza A Untype (PCR) Not detected, Influenza Type B (PCR) Not detected I & O for Last 24 hours: Intake & Output 04/06/24 04/07/24 04/08/24 04/09/24 23:59 23:59 23:59 23:59 Intake Total 3040 / 3040 Output Total 0 / 0 0 / 0 Balance 3040 / 3040 0 / 0 Weight 66.678 kg 67.903 kg Microbiology Reports for the Last 24 Hours: Microbiology 04/08/24 00:15 Blood Blood Culture - Preliminary NO GROWTH AFTER 24 HOURS 04/08/24 00:15 Blood Blood Culture - Preliminary NO GROWTH AFTER 24 HOURS 04/08/24 01:45 Leg,Left Gram Stain - Final *Routine Extremities Exam Extremities: Present edema and tenderness Comments: Dorsum of the patient's right hand is becoming tender there is stiffness upon movement of the fingers. Also noting some edema throughout the dorsum of the hand from the index finger to the ring finger.. No drainage or open wounds found. Unable to palpate what I would believe would be a fluid collection or abscess. Assessment and Plan *Assessment and plan (1) Cellulitis of right hand: Status: Acute Category: Medical Code(s): L03.113 - Cellulitis of right upper limb Plan 1. plan will notify neck shift about the increasing discomfort and swelling to the right hand, continue to watch for cultures and sensitivities in case antibiotics need to be changed, if continues to worsen consider general surgeon consult for possible I&D. Patient had an ultrasound of it today she said and said that there was nothing found. But she noted that it is is progressively getting a little worse.
[2024-04-09 04:00] VITALS: BP 97/57; PULSE 73; RESP 16; TEMP 37.1; O2SAT 96; BMI 23.5
--- NOTE | 2024-04-09 05:43 | PC.NURSE ---
Patient alert and oriented x4 this shift. Tolerating room air well. Patient had complaints of right hand swelling and stiffness more this shift along with some pain, but denied Tylenol/Ibuprofen for pain. Hospitalist came to see patient and was advised to watch closely for cultures incase of antibiotic change is needed. Will notify next shift. Consult to general surgery if needed after cultures. Patient has rested well this shift. Significant other at bedside. Antibiotics administered per SEP. Call light within reach.
[2024-04-09] MEDS: METHADONE 10MG TABLET 85 MG PO (06:34)
[2024-04-09] MEDS: PIPERACILLIN/TAZO 3.375 GM in 0.9 % SODIUM CHLORIDE 50 ML IV ×3 (06:35→23:19)
[2024-04-09 08:00] VITALS: BP 100/63; PULSE 66; RESP 18; TEMP 37.1; O2SAT 97
[2024-04-09] MEDS: PHA TO NURSING INSTRUCTION 1 EACH NOTAPPLIC (08:04)
[2024-04-09 08:35] LABS: Vancomycin,Trough 9.5 ug/mL (5.0-10.0)
--- NOTE | 2024-04-09 08:55 | EXP.PHA.CONS ---
Pharmacy Consult Date: 04/09/24 Time: 08:55 Referring provider: DR. RIBEIRO Reason for Consult:: VANCOMYCIN TROUGH LEVEL Allergies Allergy/AdvReac Type Severity Reaction Status Date / Time ciprofloxacin [From CIPRO] Allergy Unknown I-HIVES Verified 02/23/19 09:43 erythromycin base Allergy Unknown I-HIVES Verified 02/23/19 09:43 [ERYTHROMYCIN BASE] Home Medications ?Medication ?Instructions ?Recorded ?Confirmed ?Type methadone 10 mg/5 mL oral solution 85 mg PO DAILY 04/08/24 04/08/24 History New Prescriptions to Start Prescriptions: Height: 1.7 m Weight: 67.9 kg Laboratory Results:: Laboratory Results - last 24 hr 04/09/24 08:10: Vancomycin Trough 9.5 Medical History: Medical History (Updated 04/09/24 @ 00:34 by Arik Aiken APRN) IV drug user Sepsis Abscess Endocarditis Assessment and Plan Assessment and plan all Dx Assessment and Plan for all problems:: BASED ON PATIENT FACTORS AND VANC TROUGH LEVEL OF 9.5, RECOMMEND SLIGHTLY INCREASING VANCOMYCIN DOSE TO 1,500MG IV EVERY 12 HOURS. -JULIETA CLEMONS, PHARMD
[2024-04-09 08:56] LABS: Basophils % 0.3 % (0.1-2.0); Eosinophils # 0.1 K/mm3 (0.0-0.4); Eosinophils % 1.3 % (0.1-12.0); Hematocrit 31.7 % (37.0-47.0); Hemoglobin 9.8 g/dL (12.2-16.2); Lactic Acid 0.8 mmol/L (0.7-2.1); Lymphocytes # 0.9 K/mm3 (0.7-4.5); Lymphocytes % 19.2 % (10-50); Mean Corpuscular HGB Conc 30.8 g/dL (31.8-35.4); Mean Corpuscular Hemoglobin 22.6 pg (27.0-31.2); Mean Corpuscular Volume 73.4 fl (81-99); Monocytes # 0.4 K/mm3 (0.1-1.0); Monocytes % 8.1 % (1.7-9.3); Neutrophils # 3.3 K/mm3 (1.8-7.8); Neutrophils % 71.1 % (37.0-80.0); Platelet Count 191 K/mm3 (142-424); Red Blood Count 4.32 M/mm3 (4.20-5.40); Red Cell Distribution Width 15.8 % (11.5-17.5); White Blood Count 4.6 K/mm3 (4.8-10.8)
[2024-04-09 09:08] LABS: Chloride 108 mmol/L (98-107); Potassium 4.7 mmoL/L (3.5-5.1); Sodium 138 mmol/L (136-145)
[2024-04-09 09:11] LABS: Alanine Aminotransferase 27 U/L (12-78); Albumin/Globulin Ratio 1.2 (1.1-1.8); Alkaline Phosphatase 79 U/L (38-126); Anion Gap 12.7 mEq/L (5-15); Aspartate Amino Transferase 61 U/L (14-36); Bilirubin,Total 0.7 mg/dl (0.2-1.3); Blood Urea Nitrogen 11 mg/dl (7-17); Carbon Dioxide 22 mmol/L (22.0-30.0); Creatinine Clearance Estimated 130 mL/min (50-200); Estimated Glomerular Filt Rate 109 ml/min (>60); GFR (African American) 132 ML/MIN (>60); Globulin 3.4 g/dL (1.3-3.2); Total Protein,Serum 7.4 g/dl (6.3-8.2)
[2024-04-09 09:12] LABS: Calcium 8.7 mg/dl (8.4-10.2); Glucose 103 mg/dl (74-100)
[2024-04-09] MEDS: DOCUSATE SODIUM 100 MG CAPSULE PO (09:56)
[2024-04-09] MEDS: VANCOMYCIN/WATER FOR INJ (PEG) 1.5 GM/300 ML PIGGYBACK IV ×2 (09:57→21:04)
[2024-04-09 11:52] VITALS: BP 112/83; PULSE 63; RESP 18; TEMP 37.1; O2SAT 100
--- NOTE | 2024-04-09 14:06 | SW/DCPLANNER ---
I spoke w/ patient this AM regarding plans once medically stable for discharge. Patient stated that she is currently enrolled at [facility] ([facility]). Patient stated that she at times has issues w/ transportation to her appointments. Patient does have to go to clinic 5 days a week. Patient stated that she can go anytime they are open without an appointment. I provided patient information regarding [facility] [employer]. Patient is aware they require a 72 hour notice and stated that she will have transportation to follow up appointments once discharged. Discharge date is unknown at this time. I will continue to follow up w/ patient and resources. Patient did not have any further questions/needs at the time of my visit.
[2024-04-09 16:00] VITALS: BP 111/82; PULSE 64; RESP 18; TEMP 36.8; O2SAT 100
[2024-04-09 17:53] LABS: Vancomycin,Peak 21.8 ug/ml (11-39)
--- NOTE | 2024-04-09 18:24 | PC.NURSE ---
Patient tried to leave unit. RN stopped pt and said they could not leave the unit. The patient yelled at RN and stormed down the hallway saying she wanted to leave.l RN notified MD and took the AMA paperwork into patient. Patient refused to sign and spoke to MD.l Patient decided to stay and continue receiving care.
[2024-04-09 20:00] VITALS: BP 102/51; PULSE 69; RESP 16; TEMP 36.8; O2SAT 98
--- NOTE | 2024-04-09 20:20 | EXP.ACUTE.PN ---
Subjective *Date: 04/09/24 *Time: 20:20 Interval history: Patient's right hand dorsum side is becoming slightly red but edematous painful and stiff to move, no warmth today however. Stable on room air. No fevers overnight. No nausea or vomiting. Tolerating p.o. intake well. Medical Exam Vital signs and Labs for Last 24 Hours: Vital Signs Temp Pulse Resp BP Pulse Ox O2 Del Method 04/09/24 20:00 98.3 F 69 16 102/51 L 98 Room Air 04/09/24 16:00 98.3 F 64 18 111/82 100 Room Air 04/09/24 11:52 98.7 F 63 18 112/83 100 Room Air 04/09/24 08:00 98.7 F 66 18 100/63 L 97 Room Air 04/09/24 07:00 Room Air 04/09/24 05:00 Room Air 04/09/24 04:00 98.7 F 73 16 97/57 L 96 Room Air 04/09/24 03:33 Room Air 04/09/24 01:00 Room Air 04/09/24 00:00 99.5 F 77 16 102/60 L 97 Room Air 04/08/24 23:14 Room Air 04/08/24 21:05 98 Room Air 04/08/24 21:00 Room Air Intake and Output 04/09/24 04/09/24 04/09/24 07:59 15:59 23:59 Intake Total 360 / 600 240 / 600 Output Total 0 / 0 0 / 0 0 / 0 Balance 0 / 600 360 / 600 240 / 600 Intake: Intake, Oral Amount 360 / 600 240 / 600 Intake, Oral Supplement Amount 0 / 0 0 / 0 Output: Output, Urine Amount 0 / 0 0 / 0 0 / 0 Other: Number of Voids 0 0 Number of Unmeasured Voids 1 1 Weight 67.9 kg 67.9 kg Patient Weight 04/09/24 23:59 Weight 67.9 kg Laboratory Results - last 24 hr 04/09/24 08:10: Sodium 138, Potassium 4.7 D, Chloride 108 H, Carbon Dioxide 22, Anion Gap 12.7, BUN 11, Creatinine 0.60 D, Estimated Creat Clear 130, Estimated GFR 109, Est GFR ( Amer) 132 D, Glucose 103 H, Calcium 8.7, Total Bilirubin 0.7, AST 61 H D, ALT 27, Alkaline Phosphatase 79, Total Protein 7.4, Albumin 4.0, Globulin 3.4 H, Albumin/Globulin Ratio 1.2, Vancomycin Trough 9.5 04/09/24 14:30: Vancomycin Peak 21.8 04/09/24 : WBC 4.6 L, RBC 4.32, Hgb 9.8 L, Hct 31.7 L, MCV 73.4 L, MCH 22.6 L, MCHC 30.8 L, RDW 15.8, Plt Count 191, MPV 8.0, Neut % (Auto) 71.1, Lymph % (Auto) 19.2, [place] % (Auto) 8.1, Eos % (Auto) 1.3, Baso % (Auto) 0.3, Neut # (Auto) 3.3, Lymph # (Auto) 0.9, [place] # (Auto) 0.4, Eos # (Auto) 0.1, Baso # (Auto) 0.0, Lactate 0.8 I & O for Labs for Last 24 Hours: Intake & Output 04/06/24 04/07/24 04/08/24 04/09/24 23:59 23:59 23:59 23:59 Intake Total 3040 / 3040 600 / 600 Output Total 0 / 0 0 / 0 Balance 3040 / 3040 600 / 600 Weight 66.678 kg 67.903 kg 67.9 kg Microbiology Reports for the Last 24 Hours: Microbiology 04/08/24 00:15 Blood Blood Culture - Preliminary NO GROWTH AFTER 24 HOURS 04/08/24 00:15 Blood Blood Culture - Preliminary NO GROWTH AFTER 24 HOURS Constitutional: Present no acute distress, average body habitus and cooperative Head: Present atraumatic and normocephalic ENT: Present normal exam Comment:: Missing top teeth Respiratory: Present crackles and normal respiratory effort; Absent rhonchi or wheezes Cardiac: Present Reg Rate and Rhythm GI: Present soft and normal bowel sounds; Absent distention or tenderness Extremities: Present normal inspection and full ROM Skin: Present intact; Absent erythema Comment:: Draining abscess left lower leg and edematous lesion dorsum of right hand. Numerous track loco on upper and lower extremities. Multiple scars from previous abscess drainages. Neuro: Present Grossly Intact, alert, awake, oriented x 3 and moves all extremities Assessment and Plan *Assessment and plan (1) Sepsis: Status: Acute Category: Medical Code(s): A41.9 - Sepsis, unspecified organism (2) Abscess: Status: Acute Category: Medical Code(s): L02.91 - Cutaneous abscess, unspecified (3) Active intravenous drug use: Status: Acute Category: Social Hx Code(s): F19.90 - Other psychoactive substance use, unspecified, uncomplicated (4) Painful respiration: Status: Acute Category: Medical Code(s): R07.1 - Chest pain on breathing (5) Leukopenia: Status: Acute Category: Medical Code(s): D72.819 - Decreased white blood cell count, unspecified (6) Microcytic anemia: Status: Acute Category: Medical Code(s): D50.9 - Iron deficiency anemia, unspecified (7) Malnutrition: Status: Acute Category: Medical Code(s): E46 - Unspecified protein-calorie malnutrition Plan 43-year-old female who is an active IV drug user. Presented to the ER with concern for fevers and chills. Discussed case with ER physician, request admission for rule out of endocarditis. Medicine agreed to admit. Started on empiric antibiotics. Continuing broad-spectrum antibiotics for sepsis and cellulitis. Awaiting blood cultures to be negative. Anticipate discharge in the next 24 hours. Problems addressed as follows: Patient had abscess on left lower leg and cellulitis of dorsum of right hand Risk for bacteremia Active IV drug user -Blood culture still pending, negative at 24 hours - Continue Zosyn 3.375 gm every 8 hours and vancomycin 1.5 g every 12 hours. Monitor blood cultures were negative at 48 hours before discontinuing antibiotics and transitioning to oral. High risk for endocarditis given p patient's continued IV drug use and previous infections. -Transition to oral antibiotics tomorrow if blood cultures remain negative. - White count normal at 4.6. No neutrophil predominance. -Repeat CBC, CMP, magnesium ordered for the morning Anemia: Hemoglobin remained stable at 9. Transfusion threshold hemoglobin less than 7. Opiate use disorder. Currently on methadone. Can continue home regimen of methadone 85 mg daily Malnutrition: Continue multivitamin and regular diet Full code
[2024-04-10] VITALS: BP 94/51; PULSE 73; RESP 16; TEMP 37.4; O2SAT 96
[2024-04-10 04:00] VITALS: BP 92/50; PULSE 81; RESP 18; TEMP 37.4; O2SAT 96; BMI 22.6
--- NOTE | 2024-04-10 05:59 | PC.NURSE ---
Pt is A&Ox4, pt has tolerated antibiotic therapy well this shift. Pt denies pain and needs and has slept well this shift with no acute changes to note.
[2024-04-10] MEDS: PIPERACILLIN/TAZO 3.375 GM in 0.9 % SODIUM CHLORIDE 50 ML IV (06:08)
[2024-04-10] MEDS: METHADONE 10MG TABLET 85 MG PO (06:10)
--- NOTE | 2024-04-10 07:42 | P.DS_ITS ---
General Admission date:: 04/08/24 Discharge date: 04/10/24 HPI HPI HPI: The patient comes in due to having a fever not feeling well also having pain when she is breathing in. Also had an abscess on her left leg that was I&D in the emergency room, this was an injection site from IV drugs and purulent material was returned, patient has multiple track loco on both lower extremities and both forearm, noted with a low white count of 4, a history of hepatitis C, and being in a meth clinic but was unable to get her dose of 85 mg a day due to transportation issues on Tuesday so used IV drugs until her arrival to the emergency room. Patient was started on Zosyn and vancomycin in the emergency room. Scans showed multiple pulmonary nodules with the potential for endocarditis one of the reasons for admission. Patient has terrible veins lab having problems getting blood her first troponin was negative I have canceled the second 1 since nobody has been able to draw blood. She does have 1 IV in her right upper arm. Also starting the patient back on her normal dose of methadone 85 mg.. It is hard to evaluate how much fentanyl she has been taking and for how long. In order to decrease the risk of withdrawal symptoms Hospital Course Hospital Course Hospital Course: 43-year-old female who is an active IV drug user. Presented to the ER with concern for fevers and chills. Discussed case with ER physician, request admission for rule out of endocarditis. Medicine agreed to admit. Started on empiric antibiotics. Continuing broad-spectrum antibiotics for sepsis and cellulitis. Blood cultures negative at 48 hours. Will transition to oral antibiotics to complete course for cellulitis. Extensive discussion about safe drug use. Discouraged use out right. Continue to follow with methadone clinic. Stable to discharge home. Problems addressed as follows: Patient had abscess on left lower leg and cellulitis of dorsum of right hand Risk for bacteremia Active IV drug user -Blood cultures obtained on admission. Patient found to have cellulitis on dorsum of right hand and small abscess left lower leg. High risk for bacteremia. White count low on admission. Blood cultures did not grow any pathogens. Responded well to Zosyn and vancomycin. Given improvement in swelling on hand and abscess on leg, will transition to Bactrim double strength to complete 7-day course orally. White count normal on day of discharge. Anemia: Hemoglobin remained stable at 9. No indication for transfusion Opiate use disorder. Continued home regimen of 85 mg daily. Encouraged follow- up with methadone clinic tomorrow. Malnutrition: Continue multivitamin and regular diet Exam Data for Last 24 hours Vital signs and Labs for Last 24 Hours: Temp Pulse Resp BP Pulse Ox O2 Del Method 99.3 F 81 18 92/50 L 96 Room Air 04/10/24 04:00 04/10/24 04:00 04/10/24 04:00 04/10/24 04:00 04/10/24 04:00 04/10/24 06:34 Laboratory Results - last 24 hr 04/09/24 08:10: Sodium 138, Potassium 4.7 D, Chloride 108 H, Carbon Dioxide 22, Anion Gap 12.7, BUN 11, Creatinine 0.60 D, Estimated Creat Clear 130, Estimated GFR 109, Est GFR ( Amer) 132 D, Glucose 103 H, Calcium 8.7, Total Bilirubin 0.7, AST 61 H D, ALT 27, Alkaline Phosphatase 79, Total Protein 7.4, Albumin 4.0, Globulin 3.4 H, Albumin/Globulin Ratio 1.2, Vancomycin Trough 9.5 04/09/24 14:30: Vancomycin Peak 21.8 04/09/24 : WBC 4.6 L, RBC 4.32, Hgb 9.8 L, Hct 31.7 L, MCV 73.4 L, MCH 22.6 L, MCHC 30.8 L, RDW 15.8, Plt Count 191, MPV 8.0, Neut % (Auto) 71.1, Lymph % (Auto) 19.2, [place] % (Auto) 8.1, Eos % (Auto) 1.3, Baso % (Auto) 0.3, Neut # (Auto) 3.3, Lymph # (Auto) 0.9, [place] # (Auto) 0.4, Eos # (Auto) 0.1, Baso # (Auto) 0.0, Lactate 0.8 I & O for Last 24 hours: Intake & Output 04/07/24 04/08/24 04/09/24 04/10/24 23:59 23:59 23:59 23:59 Intake Total 3040 / 3040 600 / 1310 710 / 710 Output Total 0 / 0 0 / 0 0 / 0 Balance 3040 / 3040 600 / 1310 710 / 710 Weight 66.678 kg 67.903 kg 67.9 kg 65.572 kg Microbiology Reports for the Last 24 Hours: Microbiology 04/08/24 00:15 Blood Blood Culture - Preliminary NO GROWTH AFTER 48 HOURS 04/08/24 00:15 Blood Blood Culture - Preliminary NO GROWTH AFTER 48 HOURS Constitutional Constitutional: no acute distress, chronically ill appearing and cooperative *Routine HEENT Exam Head: Present normocephalic Eye: Present EOMI and PERRL ENT: Present mucous membranes moist *Routine Neck Exam Neck: Present supple; Absent lymphadenopathy *Routine Respiratory Exam Respiratory: Present CTA bilaterally; Absent rhonchi, wheezes or crackles *Routine Cardiovascular Exam Cardiovascular: Present RRR *Routine Abdominal Exam Abdominal: Present soft and normoactive bowel sounds; Absent tenderness *Routine Rectal Exam Patient deferred: visual exam *Routine Exam Patient deferred: external exam *Routine Extremities Exam Extremities: Absent cyanosis, clubbing or edema *Routine Skin Exam Skin: Present warm; Absent rash Comments: Numerous track loco on extremities. Scars from previous abscesses. Hand with no erythema, tenderness improving, mild swelling of dorsum. No fluctuance or focal abscess. Lesion left lower leg healing with scant bloody discharge today. *Routine Neurological Exam Neurological: Present alert, oriented X3 and moving all extremities; Absent altered mental status Results Data Completed and Pending Labs on day of discharge: Labs from last 24 hours 04/09/24 04/09/24 04/09/24 Unknown 14:30 08:10 WBC 4.6 L RBC 4.32 Hgb 9.8 L Hct 31.7 L MCV 73.4 L MCH 22.6 L MCHC 30.8 L RDW 15.8 Plt Count 191 MPV 8.0 Neut % (Auto) 71.1 Lymph % (Auto) 19.2 [place] % (Auto) 8.1 Eos % (Auto) 1.3 Baso % (Auto) 0.3 Neut # (Auto) 3.3 Lymph # (Auto) 0.9 [place] # (Auto) 0.4 Eos # (Auto) 0.1 Baso # (Auto) 0.0 Sodium 138 Potassium 4.7 D Chloride 108 H Carbon Dioxide 22 Anion Gap 12.7 BUN 11 Creatinine 0.60 D Estimated Creat Clear 130 Estimated GFR 109 Est GFR ( Amer) 132 D Glucose 103 H Lactate 0.8 Calcium 8.7 Total Bilirubin 0.7 AST 61 H D ALT 27 Alkaline Phosphatase 79 Total Protein 7.4 Albumin 4.0 Globulin 3.4 H Albumin/Globulin Ratio 1.2 Vancomycin Peak 21.8 Vancomycin Trough 9.5 Preliminary micro results at discharge 04/08/24 00:15 Blood Culture - Preliminary Blood NO GROWTH AFTER 48 HOURS 04/08/24 00:15 Blood Culture - Preliminary Blood NO GROWTH AFTER 48 HOURS DS: Diagnosis Discharge Diagnosis (1) Sepsis: Status: Acute Code(s): A41.9 - Sepsis, unspecified organism (2) Abscess: Status: Acute Code(s): L02.91 - Cutaneous abscess, unspecified (3) Active intravenous drug use: Status: Acute Code(s): F19.90 - Other psychoactive substance use, unspecified, uncomplicated (4) Painful respiration: Status: Acute Code(s): R07.1 - Chest pain on breathing (5) Leukopenia: Status: Acute Code(s): D72.819 - Decreased white blood cell count, unspecified (6) Microcytic anemia: Status: Acute Code(s): D50.9 - Iron deficiency anemia, unspecified (7) Malnutrition: Status: Acute Code(s): E46 - Unspecified protein-calorie malnutrition Meds Home Medications and Allergies Home Medications ?Medication ?Instructions ?Recorded ?Confirmed ?Type methadone 10 mg/5 mL oral solution 85 mg PO DAILY 04/08/24 04/08/24 History fluconazole 200 mg tablet 200 mg PO DAILY 1 day #1 tab 04/10/24 Rx (Diflucan) sulfamethoxazole 800 1 tab PO BID 5 days #10 tabs 04/10/24 Rx mg-trimethoprim 160 mg tablet (Bactrim DS) New Prescriptions to Start Prescriptions: fluconazole [Diflucan] Michael Chopra sulfamethoxazole-trimethoprim [Bactrim DS] Michael Chopra Allergies Allergy/AdvReac Type Severity Reaction Status Date / Time ciprofloxacin [From CIPRO] Allergy Unknown I-HIVES Verified 02/23/19 09:43 erythromycin base Allergy Unknown I-HIVES Verified 02/23/19 09:43 [ERYTHROMYCIN BASE] Discharge Plan Disposition Patient Disposition: Home, Self-Care Condition: Fair Follow up Plan Follow up with: Deshawn Helm APRN [Nurse Practitioner] - 04/17/24 2:00 pm Prescriptions/Medication Reconciliation: New sulfamethoxazole-trimethoprim [Bactrim DS] 800-160 mg tablet 1 tab PO BID 5 Days Qty: 10 0RF fluconazole [Diflucan] 200 mg tablet 200 mg PO DAILY 1 Days Qty: 1 0RF Rx Instructions: for post antibiotic yeast infection Continued methadone 10 mg/5 mL Solution 85 mg PO DAILY Rx Instructions: CALLED [facility] [place]. WAITING [employer] BACK. [phone] OR [phone] Problem Reconciliation Problems Reviewed?: Yes Patient Discharge Instructions ACTIVITY: Continue current activity DIET: continue same diet Additional Instructions: Patient was continued on her home regimen of Methadone daily during admission. Last dose administered morning of 04/10/24 prior to Discharge Patient Instructions: DI for Incision and Drainage of a Skin Abscess, DI for Sepsis -- Adult, DI for Skin Abscess Print Language: Romanian Providers Primary Care Provider: Provider,Referral Admit Provider: Michael Chopra Attending Provider: Michael Chopra
[2024-04-10 08:00] VITALS: BP 89/55; PULSE 71; RESP 16; TEMP 36.9; O2SAT 97
[2024-04-10 08:16] LABS: Basophils % 0.5 % (0.1-2.0); Eosinophils % 0.5 % (0.1-12.0); Hematocrit 32.2 % (37.0-47.0); Hemoglobin 10.1 g/dL (12.2-16.2); Lymphocytes # 0.4 K/mm3 (0.7-4.5); Lymphocytes % 15.1 % (10-50); Mean Corpuscular HGB Conc 31.3 g/dL (31.8-35.4); Mean Corpuscular Hemoglobin 23.7 pg (27.0-31.2); Mean Corpuscular Volume 75.6 fl (81-99); Mean Platelet Volume 7.6 fl (7.4-10.4); Monocytes # 0.1 K/mm3 (0.1-1.0); Monocytes % 4.9 % (1.7-9.3); Platelet Count 185 K/mm3 (142-424); Red Blood Count 4.26 M/mm3 (4.20-5.40); Red Cell Distribution Width 15.2 % (11.5-17.5); White Blood Count 2.6 K/mm3 (4.8-10.8)
[2024-04-10 08:27] LABS: Alanine Aminotransferase 25 U/L (12-78); Albumin Level 3.9 g/dl (3.5-5.0); Albumin/Globulin Ratio 1.2 (1.1-1.8); Alkaline Phosphatase 68 U/L (38-126); Anion Gap 6.9 mEq/L (5-15); Aspartate Amino Transferase 34 U/L (14-36); Bilirubin,Total 0.4 mg/dl (0.2-1.3); Blood Urea Nitrogen 9 mg/dl (7-17); Calcium 8.4 mg/dl (8.4-10.2); Carbon Dioxide 28 mmol/L (22.0-30.0); Chloride 103 mmol/L (98-107); Creatinine Clearance Estimated 107 mL/min (50-200); Estimated Glomerular Filt Rate 91 ml/min (>60); GFR (African American) 111 ML/MIN (>60); Globulin 3.3 g/dL (1.3-3.2); Glucose 107 mg/dl (74-100); Magnesium 1.9 mg/dl (1.6-2.3); Potassium 3.9 mmoL/L (3.5-5.1); Sodium 134 mmol/L (136-145); Total Protein,Serum 7.2 g/dl (6.3-8.2)
[2024-04-10] MEDS: MUPIROCIN 2% OINTMENT 22GM TUBE TP (09:58)
[2024-04-10] MEDS: VANCOMYCIN/WATER FOR INJ (PEG) 1.5 GM/300 ML PIGGYBACK IV (09:58)
--- NOTE | 2024-04-12 13:37 | CARE MANAGER ---
Attempted to contact patient x2 related to hospital discharge. Left VM message. NAVEEN Chandler
== END 2024-04-10 10:57 | disposition home or self-care (01) ==
LOC: ER 04-08 04:02 → 2ND 04-08 04:33
PROVIDERS: Nurse Practitioner Family; Admitting Provider Internal Medicine Adolescent Medicine; Emergency Provider Emergency Medicine; Visit Provider Internal Medicine Adolescent Medicine
DX: L02.416 Cutaneous abscess of left lower limb (principal); F19.90 Other psychoactive substance use, unspecified, uncomplicated; B95.7 Other staphylococcus as the cause of diseases classified elsewhere; R07.1 Chest pain on breathing; D72.819 Decreased white blood cell count, unspecified; D50.9 Iron deficiency anemia, unspecified; E46 Unspecified protein-calorie malnutrition; L03.113 Cellulitis of right upper limb; Z68.22 Body mass index [BMI] 22.0-22.9, adult
CPT/HCPCS: 10060; 36415; 70470; 71275; 80053; 80202; 83605; 83735; 84484; 84703; 85025; 85610; 85730; 87040; 87070; 87077; 87186; 87205; 87636; 93005; 99291; G0378; J1650; J2543; J3370; J7050; J7120; Q9967